=== PATIENT | female | born 2000 | race Caucasian/White ===

== ENCOUNTER 2018-07-16 00:45 | Emergency (ER) | payer MEDICAID, OTHER ==
[~2018-07-16] VITALS: Ht 167.6 cm; Wt 78.9 kg
[2018-07-16 00:51] VITALS: BP 130/75
== END 2018-07-16 04:09 | disposition left against medical advice (07) ==
LOC: ER 00:47
DX: R51 Headache (principal); Z53.21 Procedure and treatment not carried out due to patient leaving prior to being seen by health care provider

== ENCOUNTER 2019-07-30 13:54 | Emergency (ER) | payer MEDICAID ==
[~2019-07-30] VITALS: Ht 165.1 cm; Wt 77.1 kg
[2019-07-30 16:48] VITALS: BP 104/59
== END 2019-07-30 17:06 | disposition home or self-care (01) ==
LOC: ER 13:54
DX: S09.8XXA Other specified injuries of head, initial encounter (principal); R04.0 Epistaxis; V09.20XA Pedestrian injured in traffic accident involving unspecified motor vehicles, initial encounter; Y93.89 Activity, other specified; Y99.8 Other external cause status; Y92.89 Other specified places as the place of occurrence of the external cause
CPT/HCPCS: 70450; 81025

== ENCOUNTER 2022-03-10 20:31 | Emergency (ER) | payer MEDICAID, OTHER ==
[~2022-03-10] VITALS: Ht 167.6 cm; Wt 102.1 kg
[2022-03-11 00:40] VITALS: BP 97/64
== END 2022-03-11 00:40 | disposition home or self-care (01) ==
LOC: ER 20:31
DX: O26.891 Other specified pregnancy related conditions, first trimester (principal); M25.561 Pain in right knee; Z3A.08 8 weeks gestation of pregnancy; W01.0XXA Fall on same level from slipping, tripping and stumbling without subsequent striking against object, initial encounter; Y93.89 Activity, other specified; Y92.89 Other specified places as the place of occurrence of the external cause; Y99.8 Other external cause status